=== PATIENT | male | born 1960 | race African-American/Black ===

== ENCOUNTER 2021-05-14 10:45 | Outpatient (RCR) | payer OTHER | END 2021-05-24 | disposition home or self-care (01) | LOC: WSST | DX: R49.0 Dysphonia (principal) ==

== ENCOUNTER 2021-06-11 10:45 | Outpatient (RCR) | payer OTHER | END 2021-06-24 | disposition home or self-care (01) | LOC: WSST | DX: R49.0 Dysphonia (principal) ==